=== PATIENT | female | born 1985 | race Caucasian/White ===

== ENCOUNTER 2019-11-03 12:29 | Emergency (ER) | payer BC, SELFPAY ==
[2019-11-03 12:50] VITALS: BP 140/81; PULSE 78; RESP 18; TEMP 36.9; O2SAT 100
--- NOTE | 2019-11-03 12:59 | ED.GENADULT ---
HPI - General Adult General Chief complaint: Unspecified Stated complaint: hemmroid Time Seen by Provider: 11/03/19 12:59 Source: patient and RN notes reviewed Mode of arrival: ambulatory Limitations: no limitations History of Present Illness HPI narrative: 34 year old female who presents to [facility] care with 4 day history of rectal pain related to hemorrhoids. Patient states that she has one area at 09 0'clock that is very painful with swelling, redness, minimal bleeding noted. Patient states that she was helping her move some furniture prior to problems with hemorrhoids. Patient denies any recent constipation states that stools have been soft. Patient states that she has been using Tucks,Dibucaine spray to area,OTC hemorrhoid cream, ice packs, and has used sitz bath. Patient states that she has had problems with hemorrhoids in the past after giving each time. MD complaint: hemorrhoids Onset (ago): day(s) (4) Location: buttocks Radiation: non-radiation Severity: moderate Severity scale (1-10): 5 Quality: burning Pain Consistency: constant Relieving factors: none Exacerbating factors: movement and other (bowel movement) Associated symptoms: denies other symptoms Treatments prior to arrival: cold therapy and other (warm soaks, dibucaine, tucks,) Related Data Allergies Allergy/AdvReac Type Severity Reaction Status Date / Time Penicillins Allergy Intermediate Hives / Verified 11/03/19 13:13 Red Face Cephalosporins Allergy Mild HIVES Verified 11/03/19 13:13 Review of Systems Review of Systems: Narrative: CONSTITUTIONAL: Denies fever, chills, or sweats. EYES: Denies visual changes, redness, or discharge. ENT: Denies rhinorrhea, congestion, sore throat, or otalgia. CARDIOVASCULAR: Denies chest pain, palpitations, or edema. RESPIRATORY: Denies cough or dyspnea. GASTROINTESTINAL: Denies abdominal pain, nausea, vomiting, or diarrhea, positive for rectal pain related to hemorrhoids. GENITOURINARY: Denies dysuria or hematuria. SKIN: Denies rash or itching. MUSCULOSKELETAL: Denies back pain, joint pain, or myalgia. NEUROLOGIC: Denies headache, numbness, or weakness. PSYCHIATRIC: Denies anxiety or depression. All systems reviewed & are unremarkable except as noted in HPI and below FOR[facility]LY [facility] Past Medical History Medical History (Updated 11/04/19 @ 00:00 by Emilio Rubio) Hemorrhoids Surgical History Surgical History (Updated 11/03/19 @ 13:49 by Blanche Fuentes NP) S/P tonsillectomy and adenoidectomy Family History Family History (Updated 11/05/19 @ 09:33 by Blanche Fuentes NP) Other Asthma Diabetes mellitus Hypertension Social History Social History (Updated 11/05/19 @ 09:23 by Blanche Fuentes NP) Smoking packs per day: 1 Smoking cigarettes per day: 20.0 Smoking status: Current every day smoker Tobacco type: cigarettes Living arrangements: with family Gender identity (if verbalized by the patient): Female Comments At time of signature, agree with nursing past medical, surgical, social history. There is no relevant family history pertinent to the presenting complaint Exam Narrative: Exam Narrative: GENERAL: Well-appearing, well-nourished, and in no acute distress. HEAD: Normocephalic, atraumatic. EYES: PERRLA and EOMI. ENT: Nares clear, no rhinorrhea or epistaxis. Mucous membranes moist.TM's normal with good light reflex, throat pink with no swelling or lesions NECK: Supple.no lymphadenopathy CHEST: Clear to auscultation. No respiratory distress. HEART: Regular rate and rhythm. No murmur heard. Normal peripheral pulses. ABDOMEN: Soft, nontender, nondistended, normal active bowel sounds.9 o'clock swollen mildly red hemorrhoid, no bleeding noted. Patient has other small non inflamed hemorrhoid noted also. EXTREMITIES: Normal range of motion. No edema. SKIN: Warm, dry, no rash. Neuro: No focal deficits. Alert and oriented x3. Course Vital Signs Vital signs: Vital Signs Te
== END 2019-11-03 13:30 | disposition home or self-care (01) ==
PROVIDERS: Emergency Provider Registered Nurse
DX: K64.9 Unspecified hemorrhoids (principal); F17.210 Nicotine dependence, cigarettes, uncomplicated
CPT/HCPCS: 99213; G0463